=== PATIENT | female | born 1940 | race Caucasian/White ===

== ENCOUNTER 2024-05-09 05:26 | Inpatient (IN) | payer MEDICARE, BC ==
[2024-05-09] MEDS ORDERED: Magnesium 2 GM/50 ML BAG (IN WATER) ONE (05:29)
[2024-05-09 06:08] LABS: Base Excess (BEa) 0.5 mEq/L (-2.0 to +3.0); CO2 Tension 52.9 mmHg (35.0-45.0); Carboxyhemoglobin (COHb) 0.3 gm% (0.0-3.0); Hematocrit-ABG 29 % (36.0-47.0); Hemoglobin (Hb) 9.7 g/dL (12.0-16.0); Potassium - ABG Lab 3.36 mmol/L (3.70-5.30); pH, Arterial 7.326 (7.35-7.45)
[2024-05-09 06:09] LABS: ALV-art Gradient 251.875 mmHg (0-20); Analyzer IN Cardio ER; Calcium, Ionized (arterial) 1.24 mmol/L (1.12-1.30); Puncture Site RRA
[2024-05-09] MEDS ORDERED: Ipratropium/Albuterol 3 ML NEB ONE ×2 (06:12→13:34)
[2024-05-09 06:25] LABS: #Basophils 0.03 10x3/uL (0.0-0.2); %Basophils 0.3 % (0.0-1.0); %Eosinophils 0.9 % (0.0-10.0); %Monocytes 7.8 % (0.0-10.0); %Neutrophils 80.5 % (42.0-75.0); Hematocrit 30.1 % (36.0-47.0); Hemoglobin 9.5 g/dL (12.0-16.0); Mean Corpuscular HGB CONC 31.6 g/dL (32.0-36.0); Mean Corpuscular Hemoglobin 33.5 pg (27.0-31.0); Mean Platelet Volume 10.1 fL (7.4-10.4); Platelet Count 125 10x3/uL (130-400); RBC Distribution Width 13.7 % (11.5-14.5); Red Blood Cell (RBC) Count 2.84 mill/uL (4.20-5.40)
[2024-05-09] MEDS ORDERED: Cefepime 2 GM VIAL ONE (06:44)
[2024-05-09 06:54] LABS: ALT (SGPT) Less than 5 U/L (8-55); AST (SGOT) 15 U/L (5-34); Albumin 2.3 g/dL (3.4-4.8); Alkaline Phosphatase 49 U/L (40-110); Anion Gap 10 mmol/L (10-20); BUN (Urea Nitrogen) 21 mg/dL (9.8-20.1); Bilirubin, Total 0.4 mg/dL (0.2-1.2); Calc. Creatinine Clearance 0 mL/min (70-130); Carbon Dioxide 24 mmol/L (23-31); Chloride 110 mmol/L (98-107); Estimated GFR 81; Globulin 2.6 g/dL (2.4-3.5); Glucose 114 mg/dL (83-110); Magnesium 3.5 mg/dL (1.6-2.6); Potassium 3.7 mmol/L (3.5-5.1); Protein, Total 4.9 g/dL (5.8-8.1); Sodium 140 mmol/L (136-145)
[2024-05-09] MEDS ORDERED: LevoFLOXacin 750 mg/D5W 150 ml Premix Bag ONE (07:32)
[2024-05-09] MEDS ORDERED: LevoFLOXacin 750 mg/D5W 750 MG in Premix 1 BAG IVPB SCH (08:00)
[2024-05-09 08:04] LABS: Troponin I 0.012 ng/mL (< 0.028)
[2024-05-09] MEDS ORDERED: Acetaminophen 325 MG TAB PO PRN (08:07)
[2024-05-09] MEDS ORDERED: Senokot S 8.6-50 MG TAB PO PRN (08:07)
[2024-05-09] MEDS ORDERED: Albuterol 2.5 MG (3 mL) NEB NEB PRN (08:52)
[2024-05-09] MEDS ORDERED: Cholecalciferol 1,000 UNITS (25 MCG) TAB PO SCH (09:00)
[2024-05-09] MEDS: Cholecalciferol 1,000 UNITS (25 MCG) TAB PO SCH (10:12)
[2024-05-09] MEDS: Levothyroxine Sodium 25 MCG TAB PO SCH (10:12)
[2024-05-09] MEDS: Citalopram 20 MG TAB PO SCH (10:12)
[2024-05-09] MEDS ORDERED: methylPREDNISolone Sod Succ 40 MG VIAL ONE ×2 (12:54→17:40)
[2024-05-09] MEDS ORDERED: Enoxaparin 40 MG (0.4 mL) SYRINGE ONE (12:54)
[2024-05-09] MEDS: Enoxaparin 40 MG (0.4 mL) SYRINGE SC SCH (12:58)
[2024-05-09] MEDS: methylPREDNISolone Sod Succ 40 MG VIAL IVP SCH (12:58)
[2024-05-09] MEDS: Ipratropium/Albuterol 3 ML NEB NEB SCH ×2 (13:39→22:41)
[2024-05-09] MEDS: Memantine 10 MG TAB PO SCH (14:27)
[2024-05-09] MEDS: Cefepime 2 GM in Sodium Chloride 0.9% 100 ML IVPB SCH (14:40)
[2024-05-09] MEDS: Vancomycin (BATCH) 1.5 GM in Premix 1 BAG IVPB SCH (14:40)
[2024-05-09] MEDS ORDERED: Cefepime 1 GM VIAL ONE (17:41)
[2024-05-09] MEDS ORDERED: Sodium Chloride 0.9% 100 ML ONE (17:41)
[2024-05-09] MEDS: Cefepime 1 GM in Sodium Chloride 0.9% 100 ML IVPB SCH (17:49)
[2024-05-09] MEDS ORDERED: QUEtiapine 25 MG TAB ONE (20:35)
[2024-05-09] MEDS: QUEtiapine 25 MG TAB PO SCH (20:40)
[2024-05-09 20:52] LABS: Actual Bicarbonate (HCO3a) 25.4 mEq/L (22-28); Analyzer IN Cardio ER; Base Excess (BEa) 1.3 mEq/L (-2.0 to +3.0); Calcium, Ionized (arterial) 1.26 mmol/L (1.12-1.30); Carboxyhemoglobin (COHb) 0.3 gm% (0.0-3.0); Hematocrit-ABG 30 % (36.0-47.0); Hemoglobin (Hb) 10.3 g/dL (12.0-16.0); O2 Tension (PaO2), arterial 88.5 mmHg (> 60.0); Potassium - ABG Lab 4.01 mmol/L (3.70-5.30); pH, Arterial 7.443 (7.35-7.45)
[2024-05-09 20:54] LABS: Troponin I 0.015 ng/mL (< 0.028)
[2024-05-09 20:57] LABS: Puncture Site RBA
[2024-05-09] MEDS ORDERED: Vancomycin 1 GM in Premix 1 BAG IVPB SCH (21:00)
[2024-05-09] MEDS: Vancomycin HCl 750 MG in Sodium Chloride 0.9% 250 ML 250 ML IVPB SCH (22:55)
[2024-05-10] MEDS: Ipratropium/Albuterol 3 ML NEB NEB SCH (02:16)
[2024-05-10 04:04] VITALS: BMI 24.5
[2024-05-10 06:17] LABS: Vancomycin, Random 20.2 ug/mL (See Comment)
[2024-05-10 06:21] LABS: Anion Gap 11 mmol/L (10-20); BUN (Urea Nitrogen) 30 mg/dL (9.8-20.1); Calc. Creatinine Clearance 50 mL/min (70-130); Calcium 9.2 mg/dL (7.8-10.44); Carbon Dioxide 26 mmol/L (23-31); Chloride 109 mmol/L (98-107); Estimated GFR 77; Glucose 113 mg/dL (83-110); Potassium 4.2 mmol/L (3.5-5.1)
[2024-05-10 06:33] LABS: Sodium 142 mmol/L (136-145)
[2024-05-10 06:34] LABS: #Basophils Less than 0.03 10x3/uL (0.0-0.2); #Eosinphils Less than 0.03 10x3/uL (0.0-0.7); %Basophils 0.1 % (0.0-1.0); %Lymphocytes 3.7 % (21.0-51.0); %Monocytes 2.7 % (0.0-10.0); %Neutrophils 93.1 % (42.0-75.0); Hematocrit 26.1 % (36.0-47.0); Hemoglobin 8.8 g/dL (12.0-16.0); Mean Corpuscular HGB CONC 33.7 g/dL (32.0-36.0); Mean Corpuscular Volume 100.8 fL (78.0-98.0); Mean Platelet Volume 10.2 fL (7.4-10.4); Platelet Count 136 10x3/uL (130-400); RBC Distribution Width 13.8 % (11.5-14.5); Red Blood Cell (RBC) Count 2.59 mill/uL (4.20-5.40)
[2024-05-10] MEDS ORDERED: Vancomycin (BATCH) 1.25 GM in Premix 1 BAG IVPB SCH (10:00)
[2024-05-10 13:00] VITALS: BMI 24.5
[2024-05-10] MEDS: Sodium Chloride 0.9% 1,000 ML IV SCH (13:00)
[2024-05-10] MEDS: Vancomycin HCl 500 MG in Sodium Chloride 0.9% 100 ML IVPB SCH (21:37)
[2024-05-11 05:44] LABS: #Basophils Less than 0.03 10x3/uL (0.0-0.2); #Eosinphils Less than 0.03 10x3/uL (0.0-0.7); %Lymphocytes 2.9 % (21.0-51.0); %Monocytes 2.5 % (0.0-10.0); %Neutrophils 94.1 % (42.0-75.0); Hematocrit 26.3 % (36.0-47.0); Hemoglobin 8.4 g/dL (12.0-16.0); Mean Corpuscular HGB CONC 31.9 g/dL (32.0-36.0); Mean Corpuscular Hemoglobin 32.6 pg (27.0-31.0); Mean Corpuscular Volume 101.9 fL (78.0-98.0); Mean Platelet Volume 10.3 fL (7.4-10.4); Platelet Count 150 10x3/uL (130-400); RBC Distribution Width 14.1 % (11.5-14.5); Red Blood Cell (RBC) Count 2.58 mill/uL (4.20-5.40)
[2024-05-11 06:16] LABS: Anion Gap 10 mmol/L (10-20); BUN (Urea Nitrogen) 35 mg/dL (9.8-20.1); Calc. Creatinine Clearance 54 mL/min (70-130); Calcium 9.1 mg/dL (7.8-10.44); Carbon Dioxide 23 mmol/L (23-31); Chloride 112 mmol/L (98-107); Estimated GFR 83; Glucose 118 mg/dL (83-110); Potassium 4.3 mmol/L (3.5-5.1); Sodium 141 mmol/L (136-145)
[2024-05-11 06:21] LABS: Vancomycin, Random 22.4 ug/mL (See Comment)
[2024-05-11] MEDS ORDERED: Iopamidol-370 76% 500 ML MDV (1 ML CHARGE) ONE (09:04)
[2024-05-12] MEDS ORDERED: E-Z-HD 98% W/W 340GM BOT (x-ray ONLY) ONE (10:29)
[2024-05-12] MEDS: Budesonide 0.25 MG/2 ML NEB NEB SCH (12:49)
[2024-05-12] MEDS: Arformoterol 15 MCG/2 ML NEB NEB SCH (12:49)
[2024-05-12 18:34] VITALS: BP 129/76; TEMP 98.2
[2024-05-12] MEDS ORDERED: Arformoterol 15 MCG/2 ML NEB NEB SCH (21:00)
[2024-05-12] MEDS ORDERED: Budesonide 0.25 MG/2 ML NEB NEB SCH (21:00)
[2024-05-13] MEDS ORDERED: Aspirin 81 mg Enteric Coated Tablet PO SCH (09:00)
[2024-05-13] MEDS ORDERED: Cyanocobalamin (Vitamin B-12) 1,000 MCG TAB PO SCH (09:00)
[2024-05-13] MEDS ORDERED: Divalproex Sodium 250 MG (DR) TAB PO SCH (09:00)
== END 2024-05-12 19:38 | disposition home or self-care (01) | DRG 193 ==
LOC: ERS 05:26 → ERHOLD 07:45 → T4-A 22:48
PROVIDERS: ADMIT Hospitalist; ATTEND Internal Medicine
PROC: 4A033R1 Measurement of Arterial Saturation, Peripheral, Percutaneous Approach (ICD-10-PCS; principal; 2024-05-09)
PROC: 5A09357 Assistance with Respiratory Ventilation, Less than 24 Consecutive Hours, Continuous Positive Airway Pressure (ICD-10-PCS; 2024-05-09)
DX: J18.9 Pneumonia, unspecified organism (principal); J96.22 Acute and chronic respiratory failure with hypercapnia; J44.1 Chronic obstructive pulmonary disease with (acute) exacerbation; J44.0 Chronic obstructive pulmonary disease with (acute) lower respiratory infection; Z66 Do not resuscitate; I10 Essential (primary) hypertension; E03.9 Hypothyroidism, unspecified; Z79.899 Other long term (current) drug therapy; Z79.890 Hormone replacement therapy; Z90.10 Acquired absence of unspecified breast and nipple
CPT/HCPCS: 36415; 36600; 71045; 71275; 74230; 80048; 80053; 80202; 82805; 83605; 83735; 83880; 84145; 84484; 85025; 85379; 87040; 87081; 93005; 94640; 94660; 94760; 96365; 96375; J0692; J1650; J1956; J2920; J3370; J3475; J3490; J7050; J7620; Q9967